=== PATIENT | male | born 1980 | race African-American/Black ===

== ENCOUNTER 2017-12-25 07:03 | Emergency (ER) | payer OTHER ==
[~2017-12-25] VITALS: Ht 167.6 cm; Wt 95.3 kg
--- NOTE | 2017-12-25 07:37 | ED CARDIAC/CP/PALPITATIONS ---
History of Present Illness General Chief Complaint: Chest Pain Stated Complaint: BIBA CHEST PAIN Source: patient Exam Limitations: no limitations Vital Signs & Intake/Output Vital Signs & Intake/Output Vital Signs Date Time Temp Pulse Resp B/P B/P Pulse O2 O2 Flow FiO2 Mean Ox Delivery Rate 12/25 0856 98.4 77 143/91 95 Room Air 12/25 0706 98.2 77 18 143/90 97 Room Air Allergies Coded Allergies: No Known Allergies (12/25/17) Reconcile Medications No Known Home Medications Triage Note: BROUGHT IN BY AMBULANCE C/O LEFT SIDED CP STARTING LAST NIGHT. STATES +COCAINE AND ETOH USE, LAST 1 [employer]. DAILY USE. Triage Nurses Notes Reviewed? yes HPI: Patient is a 37-year-old male who was brought to the emergency department by ambulance due to chest discomfort/chest pain. Patient states he had been reporting last night endorses cocaine use states he is dated approximately 2 g of cocaine throughout the night along with heavy alcohol use. Last time snorting cocaine was approx 1 hour before arrival to ED. States earlier today his heart was pounding initially described a pain in the left chest which is nonradiating just left of the sternum, "it does not hurt, just feels like an adrenaline pump. It feels like something is stuck after snorting". Patient states he had has this type of pain before which is associated with previous cocaine use which had resolved on its own previously. States this time just wanted to get it checked out as the pain did not resolve and the same amount of time as previously. Denies aggravating or alleviating factors. Denie chest pain radiating to the back to the neck, to the arms. Denies headache, double or blurry vision, weakness, palpitations. (Delon MILES,Monalisa) Past History Travel History Traveled to [place] past 21 day No Medical History Any Pertinent Medical History? none Surgical History Surgical History: none Psychosocial History What is your primary language Kiswahili Tobacco Use: Never used ETOH Use: alcoholic Illicit Drug Use: cocaine Family History Hx Contributory? No (Monalisa Jernigan MD) Review of Systems Review of Systems Constitutional: Reports: see HPI. (Monalisa Jernigan MD) Physical Exam Physical Exam General Appearance: well developed/nourished, no apparent distress Head: atraumatic, normal appearance Eyes: Bilateral: PERRL, EOMI. Neck: normal inspection, JVD and carotid bruits not appreciated Respiratory: normal breath sounds, lungs clear Cardiovascular: regular rate/rhythm, No Murmurs appreciated Peripheral Pulses: 4+ dorsalis pedis (R), 4+ dorsalis pedis (L) Gastrointestinal: normal bowel sounds, soft, non-tender Extremities: normal inspection, normal capillary refill Neurologic/Psych: awake, alert, oriented x 3, dragline oiler II-XII nml as tested Core Measures ACS in differential dx? No CVA/TIA Diagnosis No Sepsis Present: No Sepsis Focused Exam Completed? No (Delon MILES,Monalisa) Progress Differential Diagnosis: Chest Discomfort Initial ED EKG: normal axis, normal intervals, normal QRS complex, normal sinus rhythm Comments: December 25, 2017 at 0913-patient is lying comfortably in bed, states he feels relaxed now, denies chest discomfort or pain. 12/25/17 1000: no further chest pain or discomfort. Patient requesting clearance to go back to work (Delon MILES,Monalisa) Plan of Care: Orders Procedure Date/time Status URINE DRUGS OF ABUSE 12/25 07 Active TROPONIN LEVEL 12/26 723 Complete COMPREHENSIVE METABOLIC PANEL 12/25 07 Complete CBC WITHOUT DIFFERENTIAL 12/26 723 Complete EKG 12/25 07 Active Laboratory Tests 12/25/17 1031: Methadone Screen Pending, Barbiturate Screen Pending, Ur Phencyclidine Scrn Pending, Amphetamines Screen Pending, U Benzodiazepines Scrn Pending, Urine Cocaine Screen Pending, Urine Cannabis Screen Pending 12/25/17 0847: Anion Gap 11, Estimated GFR > 60, BUN/Creatinine Ratio 7.3, Glucose 81, Calcium 8.6, Total Bilirubin 0.4, AST 33, ALT 36, Alkaline Phosphatase 64, Troponin I < 0.01, Total Protein 6.4, Albumin 3.8, Globulin 2.6, Albumin/Globulin Ratio 1.5 12/25/17 0759: CBC w Diff NO MAN DIFF REQ, RBC 4.98, MCV 91.5, MCH 31.6 H, MCHC 34.5, RDW 12.6 , MPV 9.3, Gran % 77.3 H, Lymphocytes % 15.6 L, Monocytes % 5.1, Eosinophils % 1.3, Basophils % 0.7, Absolute Granulocytes 7.3 H, Absolute Lymphocytes 1.5, Absolute Monocytes 0.5, Absolute Eosinophils 0.1, Absolute Basophils 0.1 (Main Jackson MD) Departure Departure Disposition: HOME OR SELF CARE Condition: Stable Clinical Impression Primary Impression: Cocaine abuse Secondary Impressions: Cocaine abuse with intoxication Additional Instructions: Please refrain from using cocaine in the future. If your chest pain returns please return to the emergency department. A list of detox facilities has been provided please review through them carefully. Please note that there might be incidental findings in your evaluation that are unrelated to the current emergency department visit. Please notify your primary care doctor about this emergency department visit in order to obtain and review all of the testing performed so that these incidental findings can be monitored as needed. If you had an x-ray performed, please understand that some fractures or other findings may not be seen on the initial set of x-rays. If your symptoms persist you might need a repeat set of x-rays to check for such a fracture. If you had a laceration evaluated, please understand that foreign bodies such as glass or wood may not be visible to the naked eye or on plain x-rays. If the wound becomes red, swollen, increasingly more painful or if there is any drainage from the wound, please have it reevaluated by a physician for the possibility of a retained foreign body. If you're unable to follow up as outlined in the discharge instructions please return to the emergency department. Thank you for choosing the [facility] Emergency Department for your care. It was a pleasure to serve you today. Departure Forms: Customer Survey DETOX FACILITIES LIST General Discharge Information Prescriptions: Current Visit Scripts No Known Home Medications (Monalisa Jernigan MD) Resident Co-Sign Statement Statement: ED Attending supervision documentation- [x] I saw and evaluated the patient. I have also reviewed all the pertinent lab results and diagnostic results. I agree with the findings and the plan of care as documented in the Resident's documentation. [] I have reviewed the ED Record and agree with the Resident's documentation. [] Additions or exceptions (if any) to the Resident's note and plan are summarized below: [] (Main Jackson MD) Critical Care Note Critical Care Note Critical Care Time: non-applicable (Monalisa Jernigan MD) ED Attending Observation Initial Observation Note: I have seen and personally examined ABDI PATEL on 12/25/17 at 1044. I agree with the current emergency department documentation. The disposition (admission or discharge) is uncertain at this time, he needs a period of observation for the following reason(s): The ED Nurse caring for this patient has been personally informed as to what the patient is being observed for. (Delon MILES,Monalisa)
--- NOTE | 2017-12-25 07:55 | RADIOLOGY REPORT ---
EXAMINATION: XR CHEST CLINICAL INFORMATION: Rule out obstruction in respiratory tract. Chest discomfort. Worsens with deep respiration. COMPARISON: None TECHNIQUE: 2 views of the chest were obtained. FINDINGS: The lungs are clear without consolidation, edema, or effusion. There is no pneumothorax. The cardiomediastinal silhouette appears normal. The osseous structures are intact. No free air under the diaphragms. IMPRESSION: No active disease in the chest.
[2017-12-25 08:10] LABS: ABSOLUTE BASOPHIL COUNT 0.1 /CUMM (0.0-0.2); ABSOLUTE EOSINOPHIL COUNT 0.1 /CUMM (0.0-0.7); ABSOLUTE GRANULOCYTE CT 7.3 /CUMM (1.4-6.5); ABSOLUTE LYMPH COUNT 1.5 /CUMM (1.2-3.4); ABSOLUTE MONOCYTE COUNT 0.5 /CUMM (0.10-0.60); BASOPHIL % 0.7 % (0.0-2.0); EOSINOPHIL % 1.3 % (0-5); GRANULOCYTE % 77.3 % (42.2-75.2); HEMATOCRIT 45.6 % (42-52); MEAN CORPUSCULAR HGB 31.6 PG (27.0-31.0); MEAN CORPUSCULAR HGB CONC 34.5 G/DL (33.0-37.0); MEAN CORPUSCULAR VOLUME 91.5 FL (80.0-94.0); MEAN PLATELET VOLUME 9.3 FL (7.4-10.4); PLATELET COUNT 340 /CUMM (130-400); RBC DISTRIBUTION WIDTH 12.6 % (11.5-14.5); RED BLOOD CELL CT 4.98 /CUMM (4.70-6.10); WHITE BLOOD CELL COUNT 9.4 /CUMM (4.8-10.8)
[2017-12-25 10:59] VITALS: BP 136/84
== END 2017-12-25 11:03 ==
LOC: ERH 07:03
PROVIDERS: Hospitalist
DX: F14.129 Cocaine abuse with intoxication, unspecified (principal); R07.89 Other chest pain; F10.10 Alcohol abuse, uncomplicated
CPT/HCPCS: 71046; 80307; 93005; 93010; 96361; 96374